=== PATIENT | female | born 1945 | race Caucasian/White ===

== ENCOUNTER 2016-05-24 16:01 | Inpatient (IN) | payer OTHER ==
[~2016-05-24] VITALS: Ht 160 cm; Wt 80.7 kg
[~2016-05-24 16:01] MED LIST: ALPHAGANP LEFTEYE; ALPR0.2583 PO; ASPI-1063 PO; CEL20 PO; DORZ10DR8 LEFTEYE; SIMV20TA2 PO; TEMA15CA51 PO; TOPI25TA8 PO
--- NOTE | 2016-05-24 16:10 | NUR ---
Dr Favian SOUZA at triage room performing MSE.
[2016-05-24 16:17] VITALS: BP 146/82; PULSE 93; RESP 18; TEMP 98.3; O2SAT 95
[2016-05-24 17:14] LABS: BASOPHILS # (AUTO) 0.2 K/uL (0.0-0.2); BASOPHILS % (AUTO) 2.1 % (0.0-2.0); EOSINOPHILS % (AUTO) 0.2 % (0.0-4.0); HEMATOCRIT 38.3 % (36-48); HEMOGLOBIN 13.1 g/dL (12.0-16.0); LYMPHOCYTES % (AUTO) 17.4 % (20.5-51.5); MEAN CORPUSCULAR HEMOGLOBIN 31 pg (27-31); MEAN CORPUSCULAR HGB CONC 34 % (32-36); MEAN CORPUSCULAR VOLUME 90 fL (79.0-98.0); MONOCYTES # (AUTO) 0.4 K/uL (0.0-1.0); MONOCYTES % (AUTO) 3.1 % (1.7-9.3); NEUTROPHILS # (AUTO) 9.1 K/uL (1.8-7.7); NEUTROPHILS % (AUTO) 77.2 % (40.0-70.0); PLATELET COUNT (AUTO) 196 K/uL (130-430); RED BLOOD CELL COUNT(AUTO) 4.25 MIL/uL (4.2-6.2); RED CELL DISTRIBUTION WIDTH 13.8 % (9.0-15.0); WHITE BLOOD COUNT (AUTO) 11.7 K/uL (4.8-10.8)
[2016-05-24 17:17] LABS: CALCIUM 9.1 mg/dL (8.4-11.0); CREATININE 1.24 mg/dL (0.55-1.30); POTASSIUM 4.4 mmol/L (3.5-5.1)
[2016-05-24 17:22] LABS: TOTAL BILIRUBIN 0.4 mg/dL (0.0-1.0); TOTAL PROTEIN, SERUM 7.7 g/dL (6.4-8.3)
[2016-05-24] MEDS ORDERED: cefTRIAXone 1 GM IVPB PREMIX 50 ML IV ONE (18:15)
[2016-05-24] MEDS ORDERED: NACL 0.9% 1,000 ML IV ONE (18:15)
--- NOTE | 2016-05-24 18:15 | NUR ---
Patient to ER bed 03 to gown for evaluation. Side rails up.
--- NOTE | 2016-05-24 18:22 | NUR ---
Patient to ER C/O generalized weakness for the past couple months. Patient states that she has been falling alot, has a hard time walking and that she is seeing a pain management doctor but the reason for the falls has not been found. AAOx4, unlabored rbeathing, no signs of acute distress.
--- NOTE | 2016-05-24 18:45 | NUR ---
# 22 gauge angiocath placed to right forearm. Use of asceptic technique. Opsite placed over site. Blood return noted. Flushed with 10 cc of normal saline. No evidence of infiltration noted. Patient tolerated well.
[2016-05-24 18:50] LABS: BILIRUBIN,URINE NEGATIVE (NEGATIVE); CLARITY/URINE CLEAR (CLEAR); COLOR,URINE YELLOW (YELLOW); GLUCOSE,URINE NEGATIVE (NEGATIVE); KETONES,URINE NEGATIVE (NEGATIVE); LEUKOCYTE ESTERASE ,URINE NEGATIVE (NEGATIVE); NITRITE, URINE NEGATIVE (NEGATIVE); PROTEIN URINE NEGATIVE (NEGATIVE); UROBILINOGEN,URINE 0.2 (0.2-1.0)
[2016-05-24 19:09] LABS: BLOOD, URINE TRACE (NEGATIVE)
[2016-05-24 19:19] LABS: BACTERIA,URINE FEW /HPF (None Seen); MUCUS,URINE None Seen /LPF (None Seen); RBC,URINE 0-3 /HPF (0-3)
[2016-05-24] MEDS ORDERED: TRAM50TA92 PO (20:10)
[2016-05-24] MEDS ORDERED: VENL37.510 PO (20:10)
--- NOTE | 2016-05-24 20:10 | NUR ---
Patient will be admitted to care of DR BUCHANAN. Admitted to TELE unit. Will go to room 135. Belongings list completed. Summary report printed. Report given to DAVID.
[2016-05-24] MEDS ORDERED: MORPHINE 4 MG/ML INJ. SYRINGE IVP PRN (20:15)
--- NOTE | 2016-05-24 20:25 | NUR ---
ADMISSION NOTE Received patient from ER via gurney. Patient admitted with diagnosis of UTI AND FALL. Patient is awake, alert, oriented. Patient oriented to hospital room, call light, toileting, pain management and safety-teach back done. Patient informed that AUBREE will be the nurse and that their room number is 112A. Personal belongings checked and Belongings List documented. Call light within reach. Safety measures in place. Bed alarm on. Sister at bedside. Will continue to monitor.
[2016-05-24 20:42] VITALS: BP 171/86; PULSE 67; RESP 18; TEMP 97.2; O2SAT 94
[2016-05-24] MEDS ORDERED: ACETAMINOPHEN 325 MG TABLET PO PRN (21:00)
--- NOTE | 2016-05-24 21:00 | NUR ---
FALL RISK AND ALLERGY BANDS Late entry due to pt. care. Fall risk and allergy bands applied and reviewed with pt.
--- NOTE | 2016-05-24 21:02 | NUR ---
DR. CHOU HERE MAKING ROUNDS Dr. Chou is here, examined patient. New orders received. Will carry out.
[2016-05-24] MEDS: ONDANSETRON HCL 4 MG/2 ML VIAL IVP PRN (21:14)
[2016-05-24] MEDS: NACL 0.9% 1,000 ML IV SCH (21:14)
[2016-05-24] MEDS: HYDROmorphone 1 MG INJ. 1 MG/ML AMPUL IVP PRN (21:40)
--- NOTE | 2016-05-24 21:43 | NUR ---
PAIN AND NAUSEA Late entry due to pt. care. Pt. c/o nausea and pain "10/10" to lower back. Pt. was given Zofran IVP and Dilaudid IVP as ordered PRN. See EMAR. Educated pt. regarding medication and s/e. Pt. verbalized understanding. Safety measures in place. Bed alarm on. Encouraged pt. to use call light for needs and is educated regarding fall risk. Room near nurses station. Denies any other needs at this time. Will continue to monitor.
--- NOTE | 2016-05-24 22:09 | NUR ---
Consult Called Reason for consultation: Unsteadiness Was consult called: Yes Person who was notified: Supriya Consulting Physician: Socrates Goldsmith MD Stock Handler Floorperson Specialty: Neuro Stock Handler Floorperson Order by Dr Loredo Addendum: 05/24/16 at 2213 by Julia Rand CO/ Order by Dr. Chou
--- NOTE | 2016-05-24 22:41 | NUR ---
REQUESTED SNACK Pt. requested turkey sandwich and apple juice. Pt. denies any other needs at this time. Encouraged pt. to use call light for any needs. Pt. verbalized understanding. Call light to right hand. Bed alarm on. Will continue to monitor.
[2016-05-24 23:41] VITALS: BP 126/73; PULSE 61; RESP 18; TEMP 97.8; O2SAT 91
--- NOTE | 2016-05-24 23:55 | NUR ---
PATIENT RESTING: Patient resting quietly. No acute distress noted. Safety measures in place. Bed alarm on. Room near nurses station. Call light placed to right hand. Will continue to monitor.
--- NOTE | 2016-05-25 00:18 | NUR ---
LAB RE: URINE CX Irma, battery recharger nurse spoke to Katie from lab in regards to UA results. Katie from lab stated pt. did not meet criteria for urine culture.
--- NOTE | 2016-05-25 00:55 | NUR ---
PATIENT RESTING: Patient resting quietly. No acute distress noted. Safety precautions in place. Bed alarm on. Call light placed to right hand. Room near nurses station. Will continue to monitor.
[2016-05-25] MEDS: HYDROmorphone 1 MG INJ. 1 MG/ML AMPUL IVP PRN ×4 (01:27→18:40)
--- NOTE | 2016-05-25 02:08 | NUR ---
ROUNDS Pt. is awake, resting quietly in bed with no s/s of acute distress. Pt. denies any needs at this time. Safety measures in place. Bed alarm on. Room near nurses station. Encouraged pt. to use call light for any assistance. Pt. verbalized understanding. Will continue to monitor.
[2016-05-25 04:06] VITALS: BP 110/68; PULSE 95; RESP 18; TEMP 96.2; O2SAT 100
--- NOTE | 2016-05-25 04:21 | NUR ---
ROUNDS Pt. is awake, resting quietly in bed. Denies any pain, discomfort or any needs at this time. Encouraged pt. to use call light for needs. Pt. verbalized understanding. Safety precautions in place. Call light to right hand. Bed alarm on. Will continue to monitor.
[2016-05-25] MEDS: NACL 0.9% 1,000 ML IV SCH ×2 (05:40→18:30)
--- NOTE | 2016-05-25 05:53 | NUR ---
URINE Pt. denies any need to void at this time; she stated she "peed alot" when she was in the ER yesterday. Bladder does not appear to be distended at this time. Will continue to monitor.
--- NOTE | 2016-05-25 06:06 | NUR ---
CLOSING NOTE All needs met throughout shift. Pt. is awake, resting quietly in bed with no s/s of acute distress. Safety precautions in place. Bed alarm on. Call light to right hand. Encouraged pt. to use call light for needs. Will endorse care to oncoming day shift nurse.
--- NOTE | 2016-05-25 06:19 | NUR ---
BEDSIDE COMMODE Bedside commode given; assisted pt. to BSC to void. Pt. tolerated well. Denies any other needs at this time. Encouraged pt. to use call light for any assistance. Safety precautions in place. Will continue to monitor.
--- NOTE | 2016-05-25 06:44 | NUR ---
SKIN/ORAL CARE Skin and oral care provided as requested by pt. Pt. tolerated well. Encouraged pt. to use call light for needs. Pt. denies any pain or discomfort at this time. Denies any nausea. Safety precautions in place. Call light to right hand. Will endorse care to oncoming day shift nurse.
--- NOTE | 2016-05-25 08:00 | NUR ---
initial notes rec patient awake alert with hob elevated. ivf infusing well on the r foream. no infiltration noted.c.o pain on her back and will medicate patient. no acute distress noted. bed in low position and side rails up and locked.call light within reached and knows when to call for assists.will continue to monitor patient.
[2016-05-25] MEDS: Effexor 37.5 MG TAB PO SCH ×2 (08:03→10:33)
[2016-05-25 08:31] VITALS: BP 130/75; PULSE 65; RESP 18; TEMP 97.6; O2SAT 92
--- NOTE | 2016-05-25 09:32 | NUR ---
Nutrition Update Bryan Scale 18 noted. Pt admitted for UTI, falls. Diet: regular BMI: 31.5 kg/m2 RD to follow per nutrition care standards.
--- NOTE | 2016-05-25 09:57 | NUR ---
MRI CANCELED: DR. VAUGHN MAKES ROUND AND HAS ORDERED TO CANCEL MRI, AND MRI DEPARTMENT IS INFORMED.
--- NOTE | 2016-05-25 10:00 | NUR ---
rounds seen by dr luther at bedside. no acute distress noted.
[2016-05-25] MEDS: ALPRAZolam 0.25 MG TABLET PO PRN ×2 (10:34→21:55)
--- NOTE | 2016-05-25 12:00 | NUR ---
rounds refused t o eat at this time. made patient comfortable. no sob noted.
[2016-05-25 12:30] VITALS: BP 108/66; PULSE 64; RESP 20; TEMP 97.8; O2SAT 92
[2016-05-25] MEDS: ONDANSETRON HCL 4 MG/2 ML VIAL IVP PRN (12:48)
--- NOTE | 2016-05-25 14:00 | NUR ---
rounds resting quietly at this time. no acute distress noted.
--- NOTE | 2016-05-25 16:00 | NUR ---
rounds resting quietly. no sob noted. call light within reached.
[2016-05-25 16:48] VITALS: BP_SYST 112; BP_SYST 122; BP_DIAS 64; BP_DIAS 71; PULSE 66; RESP 18; TEMP 98.2; O2SAT 93
[2016-05-25] MEDS: cefTRIAXone 1 GM IVPB PREMIX 50 ML IV SCH (18:29)
--- NOTE | 2016-05-25 18:30 | NUR ---
closing notes medicated as requested for pain. no sob noted. call light within reached. requested to use the commode to urinate and was assisted. no acute distress noted. call light within reached.
[2016-05-25 20:00] VITALS: BP 110/65; PULSE 68; RESP 18; TEMP 96.8
--- NOTE | 2016-05-25 20:00 | NUR ---
Opening Note Report received from Milagro HERNANDEZ. Patient is in stable condition. Currently resting in bed. IV is on the RFA 22g running NS@100ml/hr. She get out of bed to commode with assistance. Call light is within reach. Instructed to use it whenever in need of assistance. Bed is in low position. Bed alarm is on. Bed is visible from the nurses station.
--- NOTE | 2016-05-25 20:46 | NUR ---
PAGED: I PAGED ANA. @ 2010 #[phone] I SPOKE WITH RADHA VAUGHN HOUSE RN HE CALLED BACK AT 2010
[2016-05-25] MEDS: VANCOMYCIN HCL 1 GM/NS PREMIX 250 ML IV SCH (21:00)
[2016-05-25] MEDS ORDERED: VANCOMYCIN HCL 1000 MG/VIAL IV ONE (21:27)
--- NOTE | 2016-05-25 22:00 | NUR ---
Rounds Patient is currently resting in bed. Call light is within reach. Bed alarm is on.
[2016-05-26] VITALS: BP 121/76; PULSE 70; RESP 16; TEMP 99.1; O2SAT 91
--- NOTE | 2016-05-26 | NUR ---
Pain med. Medicated the patient with Dilaudid 1mg for 9/10 back pain. Will reassess. Assisted the patient to the commode and back into bed. Call light is within reach.
[2016-05-26] MEDS: HYDROmorphone 1 MG INJ. 1 MG/ML AMPUL IVP PRN ×6 (01:43→23:37)
--- NOTE | 2016-05-26 02:03 | NUR ---
Rounds Patient is currently resting in bed. Call light is within reach. Bed alarm is on.
[2016-05-26 04:00] VITALS: BP 120/47; PULSE 69; RESP 17; TEMP 99.6; O2SAT 90
--- NOTE | 2016-05-26 04:03 | NUR ---
Rounds Patient is currently sleeping in bed. Call light is within reach.
[2016-05-26] MEDS: NACL 0.9% 1,000 ML IV SCH ×2 (06:00→15:38)
--- NOTE | 2016-05-26 06:46 | NUR ---
Rounds Patient is resting in bed. IV is on the RFA 22g running NS@100ml/hr. Call light is within reach. Instructed to use it whenever in need of assistance. No signs of distress noted. Will give report to the oncoming nurse.
[2016-05-26 08:00] VITALS: BP 116/62; PULSE 72; RESP 18; TEMP 97.2; O2SAT 98
--- NOTE | 2016-05-26 08:00 | NUR ---
initial notes rec patient awake alert and eating breakfast with hob elevated. ivf infusing well on the r forearm. no infiltration noted. resp easy and unlabored. fall/safety measures reminded to the patient. bed alarm is on . bed in low position and side rails up and locked. call light within reached. and knows when to call for help. will continue to monitor patient.
[2016-05-26] MEDS: VANCOMYCIN HCL 1 GM/NS PREMIX 250 ML IV SCH (08:25)
[2016-05-26] MEDS: Effexor 37.5 MG TAB PO SCH (08:26)
[2016-05-26] MEDS: ALPRAZolam 0.25 MG TABLET PO PRN ×2 (08:37→21:08)
--- NOTE | 2016-05-26 10:00 | NUR ---
rounds assisted patient with bed side commode and ebony well. ambulated with pt on the hallway and ebony well.
--- NOTE | 2016-05-26 12:00 | NUR ---
reason for consult: sepsis was consult called: verbally spoke with dr in person person who was called: verbally spoke with dr in person consulting doctor: Dr. Stringer
--- NOTE | 2016-05-26 12:00 | NUR ---
rounds eating lunch at this time. no sob noted. friend at bedside and visited patient.no acute distress.
[2016-05-26 12:22] VITALS: BP 126/72; PULSE 53; RESP 18; TEMP 96.7; O2SAT 94
--- NOTE | 2016-05-26 14:00 | NUR ---
rounds asleep at this time. no sob noted.
--- NOTE | 2016-05-26 14:45 | NUR ---
PHYSICAL THERAPY CO-SIGN The Physical Therapy Progress Notes documented by Secretary Bookkeeper have been reviewed. Pt IS SHOWING PROGRESS WITH POC; CONT PER TX PLAN Reviewed/Co-Signed by: Zohra Fisher PT Documentation Done by: ENA GRECO ADULT DAYCARE COORDINATOR Addendum: 05/26/16 at 1445 by Zohra Fisher PT Amended: Links added.
--- NOTE | 2016-05-26 16:00 | NUR ---
rounds assisted to the commode at bedside and voided large amount of abbe output. no c/o pain at this time. no sob noted.
[2016-05-26 16:49] VITALS: BP 118/60; PULSE 61; RESP 20; TEMP 97.9; O2SAT 94
--- NOTE | 2016-05-26 18:40 | NUR ---
closing notes pt resting quietly in bed. no sob noted. stable and needs attended. bed alarm was turn on and knows when to call for assistance at bedside. bed in low position and call light within reached.
[2016-05-26] MEDS: cefTRIAXone 1 GM IVPB PREMIX 50 ML IV SCH (19:04)
[2016-05-26 20:00] VITALS: BP 135/78; PULSE 66; RESP 18; TEMP 98; O2SAT 94
--- NOTE | 2016-05-26 20:00 | NUR ---
Initial Notes Received patient resting in bed, awake, alert, oriented. Patient denies any acute distress at this time. Vital signs stable. Breathing even and unlabored on room air. IV site swollen, discontinued, new IV site start right forearm #22, good blood return noted. Patient reported pain to lower back, medicated patient per MD order. Educated patient on use of call light for assistance and fall precautions, patient verbalized understanding. Call light in hand, will continue to monitor.
--- NOTE | 2016-05-26 22:00 | NUR ---
Rounds Patient resting in bed, awake. Denies any acute distress or pain at this time. Breathing even and unlabored. Needs addressed, call light in hand. Will continue to monitor.
[2016-05-27] VITALS (7 sets, daily range): BP systolic 124–177; BP diastolic 68–98; PULSE 62–95; RESP 18–20; TEMP 97.5–98.7; O2SAT 91–95
--- NOTE | 2016-05-27 | NUR ---
Rounds Patient resting in bed, awake. Patient denies any acute distress or pain at this time. Recently medicated patient for pain, patient states relief. Breathing even and unlabored. IV site patent/clean/dry. Needs address. Call light in hand, fall precautions in place. Will continue to monitor.
--- NOTE | 2016-05-27 02:00 | NUR ---
Rounds Patient resting in bed with eyes closed. No acute distress noted, breathing even and unlabored. IV site patent/clean/dry. Will continue to monitor.
[2016-05-27] MEDS: HYDROmorphone 1 MG INJ. 1 MG/ML AMPUL IVP PRN ×5 (03:38→21:56)
[2016-05-27] MEDS: ONDANSETRON HCL 4 MG/2 ML VIAL IVP PRN ×5 (03:39→21:55)
[2016-05-27] MEDS: NACL 0.9% 1,000 ML IV SCH ×3 (03:40→16:58)
--- NOTE | 2016-05-27 04:19 | NUR ---
Rounds Patient resting in bed with eyes closed. No acute distress noted, breathing even and unlabored. IV site patent/clean/dry. Call light in hand, fall precautions in place. Will continue to monitor.
--- NOTE | 2016-05-27 06:37 | NUR ---
Closing Notes Patient resting in bed with eyes closed, easily aroused. Patient denies any acute distress or pain at this time. Breathing even and unlabored. IV site patent/clean/dry, no S/S infection/infiltration noted. Needs addressed throughout shift. Call light in hand, fall precautions in place. Will continue to monitor for changes and safety, and endorse all patient care/needs to oncoming nurse.
--- NOTE | 2016-05-27 08:00 | NUR ---
OPENING NOTES, PT IN BED, C/O OF PAIN 05/01, TOLD HER, PAIN MEDICATION WILL BE PROVIDED WHEN DUE. NO SOB, NO DISTRESS. CALL LIGHT IN REACH, BED IN LOW POSTION. INSTRUCTED TO CALL FOR ASSIST TO BS COMMODE.
[2016-05-27] MEDS: VANCOMYCIN HCL 1,000 MG in NS 250 ML IV SCH (08:19)
[2016-05-27] MEDS: Effexor 37.5 MG TAB PO SCH (08:19)
--- NOTE | 2016-05-27 10:00 | NUR ---
NOTES, PT IN BED, NO SOB, NO DISTRESS. CALL LIGHT IN REACH, BED IN LOW POSTION. INSTRUCTED TO CALL FOR ASSIST TO BS COMMODE.
[2016-05-27] MEDS: ALPRAZolam 0.25 MG TABLET PO PRN ×2 (12:16→22:55)
--- NOTE | 2016-05-27 13:20 | NUR ---
PT NOTES MULTIPLE ATTEMPTS TO PERFORM THERAPY WITH PATIENT IN MORNING AND AFTER LUNCH WITH PT REFUSING THERAPY TODAY. PT STATES, "I CAN'T NOT GET OUT OF BED TODAY, AND WANT TO BE LEFT ALONE. I WILL TRY TOMORROW." EDUCATED PT THE BENEFITS OF OOB ACTITIVITES AND TO PERFORM BEDSIDE THER EX. PT ALSO REFUSED BEDSIDE THERAPY. DISCUSSED WITH NURSING. PVE(2) Addendum: 05/27/16 at 1506 by Temitope Gregory PT PHYSICAL THERAPY CO-SIGN The Physical Therapy Progress Notes documented by Pulverizer Operator have been reviewed. Reviewed/Co-Signed by: Temitope Gregory PT Documentation Done by: Edd Beyer, SENIOR PROJECT ENGINEER
[2016-05-27] MEDS: cefTRIAXone 1 GM IVPB PREMIX 50 ML IV SCH (17:01)
--- NOTE | 2016-05-27 18:00 | NUR ---
CLOSING NOTES PT REMAINS ALERT AND ORIENTED, GIVEN ANXIETY MED AND PAIN MEDS REQUESTED, MRI RESULT REQUESTED BUT UNABLE TO GET. WILL ENDORSE TO NIGHT RN.
--- NOTE | 2016-05-27 19:45 | NUR ---
opening note received patient resting in bed. appears to be sleeping. respirations even and unlabored. no s/s distress. comm board updated. safety precautions in place.
--- NOTE | 2016-05-27 22:57 | NUR ---
bed bath bed bath given by library aide. pt comfortable. pain medication effective and no nausea present
[2016-05-28] VITALS (7 sets, daily range): BP systolic 123–158; BP diastolic 71–94; PULSE 77–87; RESP 16–18; TEMP 97.8–98.4; O2SAT 91–98
[2016-05-28] MEDS: HYDROmorphone 1 MG INJ. 1 MG/ML AMPUL IVP PRN ×4 (01:45→17:26)
[2016-05-28] MEDS: ONDANSETRON HCL 4 MG/2 ML VIAL IVP PRN ×4 (01:45→17:18)
--- NOTE | 2016-05-28 01:54 | NUR ---
BSC ASSISTED PATIENT TO BSC. BACK IN BED. NAUSEA AND PAIN MEDICATION GIVEN. PAIN 7/10 TO LOWER BACK. SAFETY PRECAUTIONS IN PLACE. IV FLUID CONTINUES TO INFUSE NS AT 100ML/H. CALL LIGHT AT SIDE.
[2016-05-28] MEDS: NACL 0.9% 1,000 ML IV SCH (03:48)
--- NOTE | 2016-05-28 03:56 | NUR ---
rounds new iv fluid bag hung. pt comfortable. iv patent and intact.
[2016-05-28] MEDS: ALPRAZolam 0.25 MG TABLET PO PRN ×2 (05:23→17:18)
--- NOTE | 2016-05-28 06:45 | NUR ---
closing note pt resting. no s/s distress. no c/o pain. pain medication effective. iv to right forearm patent and intact. pt calls for assist for bsc. safety precautions in place. all needs met at this time.
[2016-05-28] MEDS: Effexor 37.5 MG TAB PO SCH (09:07)
[2016-05-28] MEDS: VANCOMYCIN HCL 1,000 MG in NS 250 ML IV SCH (09:07)
[2016-05-28] MEDS ORDERED: LEVO500T20 PO (11:38)
--- NOTE | 2016-05-28 12:56 | NUR ---
DISCHARGE PLANNING DC order to SNF. Faxed SNF referral per patient request to [phone]. will follow up on bed availability. [facility] will notify insurance for auth. Addendum: 05/28/16 at 1400 by Jennifer AKHTAR Received call from Andreea at [facility] unable to accept patient facility full has no beds available. CM met with patient and provided contracted SNF list. Faxed SNF referral to [phone] [phone]. Will follow up. Addendum: 05/28/16 at 1506 by Jennifer Alonzo DP spoke with Kelly in admitting at [facility] SN[facility] patient accepted assigned to room 18A RN to report [phone] bed available anytime. CM will update patient. Placed transportation packet in nurses station. Called contracted ambulance [facility] [phone] spoke with Jackie arranged S transport sweet pickled fruit maker 6pm. Placed transportation packet in nurses station.
--- NOTE | 2016-05-28 17:11 | NUR ---
REPORT TO [facility] REPORT GIVEN TO NURSE MICHELINE OF [facility].
--- NOTE | 2016-05-28 19:10 | NUR ---
D/C Patient Patient given medication reconciliation form and D/C instructions. Exit Care provided. Patient verbalized understanding. MD discussed with patient the results and treatment provided. Ambulatory with steady gait for discharge to home. Patient in stable condition, ID band removed. IV catheter removed, intact and dressing applied, no active bleeding. Rx of given. Patient educated on pain management. All belongings sent with patient.
== END 2016-05-28 19:10 | disposition home or self-care (01) | DRG 690 ==
LOC: SED 16:01 → STU 20:10 → SMU 05-25 19:20
PROVIDERS: ATTEND Internal Medicine Hospice and Palliative Medicine
DX: N39.0 Urinary tract infection, site not specified (principal); G89.29 Other chronic pain; H54.42 Blindness, left eye, normal vision right eye; K21.9 Gastro-esophageal reflux disease without esophagitis; F32.9 Major depressive disorder, single episode, unspecified; M54.9 Dorsalgia, unspecified; F41.9 Anxiety disorder, unspecified; B95.8 Unspecified staphylococcus as the cause of diseases classified elsewhere; M54.5 Low back pain; Z91.81 History of falling; Z88.5 Allergy status to narcotic agent; Z88.6 Allergy status to analgesic agent; Z88.8 Allergy status to other drugs, medicaments and biological substances; Z86.73 Personal history of transient ischemic attack (TIA), and cerebral infarction without residual deficits
CPT/HCPCS: 36415; 80053; 81000-TC; 83605; 84484; 85025; 87040-TC; 87081; 93005; 96365; 97110-GP; 97116-GP; 97530-GP; 99285; J0696; J1170; J2405; J3370; J7030; J7050

== ENCOUNTER 2016-06-15 10:29 | Inpatient (IN) | payer OTHER ==
[~2016-06-15] VITALS: Ht 160 cm; Wt 88.9 kg
[2016-06-15 10:29] VITALS: BP 163/87; PULSE 69; RESP 17; TEMP 97.6; O2SAT 97
[~2016-06-15 10:29] MED LIST changes: +LEVO500T20 PO; +TRAM50TA92 PO; +VENL37.510 PO
--- NOTE | 2016-06-15 10:29 | NUR ---
BROUGHT IN BY S AMBULANCE AND PLACED IN BED #2, REPORT GIVEN TO NEL
--- NOTE | 2016-06-15 10:30 | NUR ---
Pt report received from DAVID Lynne. Pt s/p fall today onto carpet injuring her Right back and hip. Pt states that she has been experiencing multiple falls since r/t her "leg giving out." No trauma or deformities noted.
[2016-06-15] MEDS ORDERED: ONDANSETRON HCL 4 MG/2 ML VIAL IVP ONE (10:45)
[2016-06-15] MEDS ORDERED: HYDROmorphone 2 MG/ML VIAL IVP ONE (10:45)
[2016-06-15 11:24] LABS: BASOPHILS # (AUTO) 0.1 K/uL (0.0-0.2); BASOPHILS % (AUTO) 0.9 % (0.0-2.0); EOSINOPHILS # (AUTO) 0.2 K/uL (0.0-0.4); EOSINOPHILS % (AUTO) 2.7 % (0.0-4.0); HEMATOCRIT 35.5 % (36-48); HEMOGLOBIN 11.5 g/dL (12.0-16.0); LYMPHOCYTES # (AUTO) 1.9 K/uL (1.0-5.5); LYMPHOCYTES % (AUTO) 29.9 % (20.5-51.5); MEAN CORPUSCULAR HEMOGLOBIN 29 pg (27-31); MEAN CORPUSCULAR HGB CONC 32 % (32-36); MEAN CORPUSCULAR VOLUME 90 fL (79.0-98.0); MONOCYTES # (AUTO) 0.4 K/uL (0.0-1.0); MONOCYTES % (AUTO) 5.7 % (1.7-9.3); NEUTROPHILS # (AUTO) 3.8 K/uL (1.8-7.7); NEUTROPHILS % (AUTO) 60.8 % (40.0-70.0); PLATELET COUNT (AUTO) 255 K/uL (130-430); RED BLOOD CELL COUNT(AUTO) 3.97 MIL/uL (4.2-6.2); WHITE BLOOD COUNT (AUTO) 6.4 K/uL (4.8-10.8)
[2016-06-15 11:36] LABS: CREATININE 0.98 mg/dL (0.55-1.30); POTASSIUM 4.3 mmol/L (3.5-5.1)
[2016-06-15 11:41] LABS: ALBUMIN 3.4 g/dL (3.4-4.8); INR 0.9 (0.8-1.2); PROTHROMBIN TIME 10.2 SECS (9.5-12.5); TOTAL BILIRUBIN 0.4 mg/dL (0.0-1.0); TOTAL PROTEIN, SERUM 6.8 g/dL (6.4-8.3)
--- NOTE | 2016-06-15 11:45 | NUR ---
Patient not responsive at this time 02 67 %, skin turning blue, radial pulses equal and strong after Dilaudid administration, Dr Land notified at this time, charge nurse and RT at bedside, verbal order for Narcan 1 mg received and administered. Addendum: 06/15/16 at 1223 by SDEDAFJ Pt oxygenated with Ambubag 100 % at this time.
--- NOTE | 2016-06-15 11:45 | NUR ---
Dr Land at bedside to evaluating patient.
--- NOTE | 2016-06-15 11:50 | NUR ---
Pt O2 increasing to 93 %, pt responsive at this time, eyes open, skin pink and warm, VSS,radial pulses equal and strong.
--- NOTE | 2016-06-15 11:52 | NUR ---
Pt confuse at this time, pt asking repetitive questions, " where am I ?, what room am I? ". aware.
[2016-06-15] MEDS ORDERED: NALOXONE HCL 2 MG/2 ML SYR ONE (11:55)
[2016-06-15] MEDS ORDERED: NALOXONE HCL 2 MG/2 ML SYR (NARCAN) IVP ONE (12:30)
--- NOTE | 2016-06-15 12:34 | NUR ---
Unable to reconcile medications at this time, pt came from home and states she does not remember medications name.
[2016-06-15 12:40] LABS: BILIRUBIN,URINE NEGATIVE (NEGATIVE); BLOOD, URINE NEGATIVE (NEGATIVE); CLARITY/URINE CLEAR (CLEAR); COLOR,URINE YELLOW (YELLOW); GLUCOSE,URINE NEGATIVE (NEGATIVE); KETONES,URINE NEGATIVE (NEGATIVE); LEUKOCYTE ESTERASE ,URINE NEGATIVE (NEGATIVE); NITRITE, URINE NEGATIVE (NEGATIVE); PH,URINE 7.5 (5.0-8.0); PROTEIN URINE TRACE (NEGATIVE); UROBILINOGEN,URINE 0.2 (0.2-1.0)
--- NOTE | 2016-06-15 12:47 | NUR ---
Pt on stable condition at this time, Alert to name and place, VS WNL.
--- NOTE | 2016-06-15 12:50 | NUR ---
Dr Biswas at bedside examining patient.
[2016-06-15] MEDS ORDERED: IPRATROPIUM BROM 0.5 MG/2.5 ML VIAL.NEB (ATROVENT) INH PRN (13:00)
[2016-06-15] MEDS ORDERED: ALBUTEROL SULFATE 0.083% 2.5 MG/3 ML VIAL.NEB INH PRN (13:00)
[2016-06-15] MEDS ORDERED: ACETAMINOPHEN 325 MG TABLET PO PRN (13:00)
[2016-06-15] MEDS ORDERED: ONDANSETRON HCL 4 MG/2 ML VIAL IVP PRN (13:00)
[2016-06-15 13:07] LABS: BACTERIA,URINE RARE /HPF (None Seen); RBC,URINE NONE SEEN /HPF (0-3); WBC,URINE 0-3 /HPF (0-3)
--- NOTE | 2016-06-15 13:11 | NUR ---
ADMIT NOTE Received pt from ER to the floor with a diagnosis of respiratory distress and back pain. Admission process initiated. patient oriented to pain management, safety and call light-teach back done.
[2016-06-15 13:15] LABS: MUCUS,URINE None Seen /LPF (None Seen)
[2016-06-15 13:16] VITALS: BP 98/60; PULSE 75; RESP 18; TEMP 98.6; O2SAT 98
[2016-06-15 13:16] LABS: BACTERIA,URINE RARE /HPF (None Seen); MUCUS,URINE None Seen /LPF (None Seen); RBC,URINE NONE SEEN /HPF (0-3); WBC,URINE 0-3 /HPF (0-3)
--- NOTE | 2016-06-15 13:20 | NUR ---
Patient will be admitted to care of Dr Biswas. Admitted to Tele unit. Will go to room 135B. Belongings list completed. Summary report printed. Report will be given at bedside.
--- NOTE | 2016-06-15 14:56 | NUR ---
RN ROUNDS PATIENT RESTING IN BED, EYES CLOSED, BREATHING IS EVEN AND UNLABORED, NO SIGNS OF DISTRESS, BED IN LOWEST POSITION, THREE SIDE RAILS UP, BED ALARM ON, BED CLOSE TO NURSE'S STATION, FALL AND ASPIRATION PRECAUTIONS IN PLACE, CALL LIGHT IN THE PATIENT'S HAND, WILL CONTINUE TO MONITOR.
--- NOTE | 2016-06-15 15:46 | NUR ---
RN ROUNDS PATIENT RESTING IN BED, EYES CLOSED, BREATHING IS EVEN AND UNLABORED, NO SIGNS OF DISTRESS, BED IN LOWEST POSITION, THREE SIDE RAILS UP, BED ALARM ON, BED CLOSE TO NURSE'S STATION, FALL AND ASPIRATION PRECAUTIONS IN PLACE, CALL LIGHT NEXT TO THE PATIENT'S HAND.
--- NOTE | 2016-06-15 16:45 | NUR ---
CONSULT REASON FOR CONSULT: PAIN WAS CONSULT CALLED : DR. JAMILA OFFICE WAS CALLED SEVERAL TIMES NOBODY PICKED UP CONSULTING PHONE NUMBER: [phone]
--- NOTE | 2016-06-15 17:06 | NUR ---
CONSULT REASON FOR CONSULT: SOB PERSON WHO WAS NOTIFIED : DR. URBINA OIL CHANGER WAS NOTIFIED
--- NOTE | 2016-06-15 17:24 | NUR ---
CONSULT REASON FOR CONSULT : PAIN CONSULTING PHYSICIAN: DR. STEINER PERSON WHO WAS NOTIFIED: MICHELLE
--- NOTE | 2016-06-15 18:30 | NUR ---
DR JATIN MACHUCA WILL FOLLOW UP WITH ANY NEW ORDERS.
--- NOTE | 2016-06-15 18:51 | NUR ---
CLOSING NOTES PATIENT RESTING IN BED, EYES CLOSED, BREATHING IS EVEN AND UNLABORED, NO SINGS OF DISTRESS, BED IN LOWEST POSITION, THREE SIDE RAILS UP, BED ALARM ON, BED CLOSE TO NURSE'S STATION, FALL AND ASPIRATION PRECAUTIONS IN PLACE, CALL LIGHT NEXT TO THE PATIENT'S HAND, WILL ENDORSE REPORT TO NOC SHIFT NURSE.
--- NOTE | 2016-06-15 19:45 | NUR ---
Initial Notes Patient alert and oriented, able to make needs known. Patient c/o pain, will medicate with pain medicine ordered. No SOB noted, on 2L/NC. Denies nausea/vomiting at this time. IV site patent, flushes well. Patient repositioned in bed. Goal of pain management, ortho stability and safety this shift. Call light within reach. Will continue to monitor.
[2016-06-15] MEDS: traMADol HCL HCL 50 MG TABLET (ULTRAM) PO PRN (19:52)
[2016-06-15 20:01] VITALS: BP 111/59; PULSE 70; RESP 18; TEMP 97; O2SAT 96
[2016-06-15] MEDS: ACETAMINOPHEN/CODEINE 300 MG-30 MG TABLET PO SCH (21:18)
--- NOTE | 2016-06-15 21:49 | NUR ---
MD HUERTA CALLED BÁRBARA NICHOLSON AT [phone] SPOKE WITH DANAE.
--- NOTE | 2016-06-15 22:00 | NUR ---
Notes Patient recently medicated with ordered pain medicine. Patient had requested for staff to call MD, to ask for Dilaudid. Spoke to on the phone and informed MD of pts request. Per MD, he does not want to give the Dilaudid since patient had resp distress the most recent time she had it. Informed MD pt was ok with lower dose of the Dilaudid, but MD stated to continue with current pain regimen, no new orders received. Call light within reach. Will continue to monitor.
--- NOTE | 2016-06-15 22:10 | NUR ---
2ND PAGE OUT TO PAGED DOC NICHOLSON AT [phone] SPOKE WITH SHIVA.
[2016-06-16] VITALS (8 sets, daily range): BP systolic 110–143; BP diastolic 66–81; PULSE 56–102; RESP 16–20; TEMP 97.2–98.7; O2SAT 90–100
--- NOTE | 2016-06-16 00:05 | NUR ---
PAGED: I PAGED ANA. @ [phone] I SPOKE WITH JANIYA ORTIZ
--- NOTE | 2016-06-16 00:16 | NUR ---
Notes Patient requested for her Xanax, med is not ordered for her. Claudine SOUZA, awaiting call back. No SOB noted. IV site patent, flushes well. Call light within reach. Will continue to monitor.
--- NOTE | 2016-06-16 00:33 | NUR ---
PAGED: I PAGED ANA. @ [phone] I SPOKE WITH SNEHA DIANA VAUGHN DYE MACHINE OPERATOR THIS IS THE SECOND CALL FOR HIM 1ST. PAGED WAS @ [phone]
--- NOTE | 2016-06-16 00:49 | NUR ---
PAGED: I PAGED PHY. TABOR PAGED: I PAGED PHY. SALINAS @ [phone] THIS IS THE THIRD CALL I SPOKE WITH MALINDA VAUGHN IS OXYGEN THERAPIST. NO ANSWER UNTIL NOW.
--- NOTE | 2016-06-16 01:15 | NUR ---
PAGED: I PAGED PHY. SALINAS @ 0115 # [phone] DR. VAUGHN JOURNEYMAN GLAZIER THIS IS THE FOURTH CALL I SPOKE WITH DILEEP ORTIZ
[2016-06-16] MEDS: ALPRAZolam 0.25 MG TABLET PO PRN ×2 (01:35→20:06)
[2016-06-16] MEDS: traMADol HCL HCL 50 MG TABLET (ULTRAM) PO PRN (01:38)
--- NOTE | 2016-06-16 02:03 | NUR ---
Notes Patient recently medicated with ordered pain medicine and xanax as requested. No SOB noted. IV site patent, flushes well. Afebrile. Call light within reach. Will continue to monitor.
--- NOTE | 2016-06-16 04:15 | NUR ---
Notes Patient sleeping at this time. No s/s of pain noted. No SOB noted. IV site patent, flushes well. Call light within reach. Will continue to monitor.
--- NOTE | 2016-06-16 06:48 | NUR ---
Closing Notes Patient sleeping at this time. No SOB noted, on 2L/NC. Denies nausea/vomiting at this time. IV site patent, flushes well. Patient repositioned in bed. Goal of pain management, ortho stability and safety met. Call light within reach. Will continue to monitor.
--- NOTE | 2016-06-16 07:30 | NUR ---
AM ROUNDS PATIENT RESTING IN BED, AWAKE, ALERT AND ORIENTED X4, STATES MODERATE PAIN LEVEL AND WOULD LIKE TO WAIT FOR HER SCHEDULED MEDIATION, ASSESSMENT COMPLETE, EDUCATED THE PATIENT STATISTICIAN THEORETICAL LIGHT SYSTEM AND TO CALL FOR ANY ASSISTANCE, PATIENT VERBALIZED UNDERSTANDING, BED IN LOWEST POSITION, THREE SIDE RAILS UP, BED ALARM ON, BED CLOSE TO NURSE'S STATION, FALL AND ASPIRATION PRECAUTIONS IN PLACE, CALL LIGHT IN THE PATIENT'S HAND.
[2016-06-16] MEDS: ACETAMINOPHEN/CODEINE 300 MG-30 MG TABLET PO SCH ×4 (07:57→20:07)
--- NOTE | 2016-06-16 08:30 | NUR ---
DR JOHANA MACHUCA WILL FOLLOW UP WITH ANY NEW ORDERS.
--- NOTE | 2016-06-16 09:40 | NUR ---
Nutrition Update Bryan Scale 16 noted. Pt admitted for respiratory distress, back pain. Diet: NPO BMI: 34.9 kg/m2 RD to follow per nutrition care standards.
--- NOTE | 2016-06-16 10:55 | NUR ---
DR STEINER CALL BACK REGARDING PAIN MEDICATION ORDERS, WILL FOLLOW UP.
--- NOTE | 2016-06-16 10:55 | NUR ---
DR STEINER STATED OK TO GIVE DILAUDID 1MG IVP.
[2016-06-16] MEDS: HYDROmorphone 1 MG INJ. 1 MG/ML AMPUL IVP PRN ×4 (11:36→21:17)
--- NOTE | 2016-06-16 11:36 | NUR ---
RN ROUNDS PATIENT AWAKE NOW, STATING 10/10 PAIN, EDUCATED THE PATIENT ON PAIN MANAGEMENT AND ON MEDICATION AND POTENTIAL SIDE EFFECTS, PATIENT VERBALIZED UNDERSTANDING, IV SITE IS PATENT, FLUSHING WELL, NASAL CANNULA PLACED BACK ON THE PATIENT AT 2L, WILL CONTINUE TO MONITOR, NO OTHER NEEDS AT THIS TIME, BED IN LOWEST POSITION, THREE SIDE RAILS UP, BED ALARM ON, BED CLOSE TO NURSE'S STATION, FALL AND ASPIRATION PRECAUTIONS IN PLACE, CALL LIGHT IN THE PATIENT'S HAND.
--- NOTE | 2016-06-16 12:59 | NUR ---
RN ROUNDS PATIENT RESTING IN BED, AWAKE, STATES NO PAIN AT THIS TIME, PATIENT REFUSED 1300 TYLENOL #3 AT THIS TIME, NO OTHER NEEDS AT THIS TIME, NO DISTRESS, BED IN LOWEST POSITION, THREE SIDE RAILS UP, BED ALARM ON, BED CLOSE TO NURSE'S STATION, FALL AND ASPIRATION PRECAUTIONS IN PLACE, CALL LIGHT NEXT TO THE PATIENT'S HAND, WILL CONTINUE TO MONITOR.
--- NOTE | 2016-06-16 14:35 | NUR ---
Bryan scale evaluation: Patient evaluated for a low Bryan score of 16. Patient was awake, alert, oriented, and received in a Jose Angel bed with an Isoflex LEATHA mattress. Patient needs assist to turn in bed. Recommend encourage and assist patient as needed with repositioning every 2 hours with pillow support, and offload pressure areas with pillows for pressure redistribution. Elevate, offload and float bilateral heels with pillows. Use moisture barrier cream on buttocks and other moisture susceptible areas 4 times a day, and as needed for soiling. Perform skin care and monitor skin integrity every shift.
[2016-06-16] MEDS: GABAPENTIN 400 MG CAPSULE PO SCH ×2 (14:36→20:03)
--- NOTE | 2016-06-16 14:40 | NUR ---
RN ROUNDS PATIENT RESTING IN BED, AWAKE, STATES PAIN IS MILD, EDUCATED ON MEDICATION AND POTENTIAL SIDE EFFECTS, PATIENT VERBALIZED UNDERSTANDING AT THIS TIME AND TOLERATED WELL,NO OTHER NEEDS AT THIS TIME, BED IN LOWEST POSITION, THREE SIDE RAILS UP, BED ALARM ON, FALL AND ASPIRATION PRECAUTIONS IN PLACE, CALL LIGHT IN THE PATIENT'S HAND, BED CLOSE TO NURSE'S STATION.
[2016-06-16 15:07] LABS: BLOOD GAS PH 7.329 (7.350-7.450)
[2016-06-16 15:08] LABS: ABG TOTAL HEMOGLOBIN 12.3 G/dL (12.0-18.0); BLOOD GAS BASE EXCESS 1.7 mmol/L (-3.0-3.0); BLOOD GAS COHb% 0.2 % (0.5-1.5); BLOOD GAS HHB 3.3 % (0.0-6.0); BLOOD O2Hb% 96.1 % (94.0-97.0)
--- NOTE | 2016-06-16 15:34 | NUR ---
RN ROUNDS PATIENT RESTING IN BED, STATING SEVERE PAIN AT THIS TIME, EDUCATED ON MEDICATION AND POTENTIAL SIDE EFFECTS, PATIENT VERBALIZED UNDERSTANDING AND TOLERATED WELL, IV SITE IS PATENT WITH NO SIGNS OF INFILTRATION, BED IN LOWEST POSITION, THREE SIDE RAILS UP, BED ALARM ON, FALL AND ASPIRATION PRECAUTIONS IN PLACE, CALL LIGHT IN THE PATIENT'S HAND, BED CLOSE TO NURSE'S STATION, WILL CONTINUE TO MONITOR.
--- NOTE | 2016-06-16 16:46 | NUR ---
DR VAUGHN PAGED REGARDING DIET ORDERS AND TO NOTIFY THAT MRI NEEDS DOCUMENTATION TO WHETHER THE PATIENT'S IVC FILTER IS METAL/MRI COMPATIBLE, WILL FOLLOW UP.
--- NOTE | 2016-06-16 16:55 | NUR ---
DR VAUGHN CALL BACK STATED OK TO HAVE REGULAR DIET, STATED HE WOULD NOT HAVE THE INFO ABOUT THE IVC FILTER, WILL NOTIFY DR STEINER.
--- NOTE | 2016-06-16 17:06 | NUR ---
RN ROUNDS PATIENT RESTING IN BED, DENIES PAIN, BEING ASSISTED BY SENIOR WEB ENGINEER AT THIS TIME, NO OTHER NEEDS AT THIS TIME, BED IN LOWEST POSITION, THREE SIDE RAILS UP, BED ALARM ON, BED CLOSE TO NURSE'S STATION, FALL AND ASPIRATION PRECAUTIONS IN PLACE, CALL LIGHT IN THE PATIENT'S HAND.
--- NOTE | 2016-06-16 18:30 | NUR ---
CLOSING NOTES PATIENT RESTING IN BED, AWAKE, STATES 7/10 PAIN, EDUCATED ON PAIN MEDICATION AND POTENTIAL SIDE EFFECTS, PATIENT VERBALIZED UNDERSTANDING AND TOLERATED WELL, IV SITE IS PATENT WITH NO SIGNS OF INFILTRATION, ALL NEEDS MET, BED IN LOWEST POSITION, THREE SIDE RAILS UP, BED ALARM ON, FALL AND ASPIRATION PRECAUTIONS IN PLACE, CALL LIGHT IN THE PATIENT'S HAND, WILL ENDORSE REPORT TO NOC SHIFT NURSE.
--- NOTE | 2016-06-16 19:35 | NUR ---
INITIAL ASSESSMENT: RECEIVE PT IN BED, AWAKE, ALERT AND ORIENTED X4,RESTING, DENIES ANY PAIN OR DISCOMFORT, BREATHING EVEN AND NON LABORED WITH 02 2LI/NC, VITAL STABLE. PT STATES MODERATE PAIN LEVEL AND WOULD LIKE TO WAIT FOR HER SCHEDULED MEDIATION, CHEST CLEARM ABDOMEN SOFT AND NON DISTENDED, ACTIVE BOWEL SOUND THROUGHOUT ABDOMEN, PT HAS IV ON LEFT CHEST 24 G, FLUSHED WELL, SALINE LOCK, ASSESSMENT COMPLETE, EDUCATED THE PATIENT MASTER NAVAL PARACHUTIST LIGHT SYSTEM AND TO CALL FOR ANY ASSISTANCE, PATIENT VERBALIZED UNDERSTANDING, BED IN LOWEST POSITION, THREE SIDE RAILS UP, BED ALARM ON, BED CLOSE TO NURSE'S STATION, FALL AND ASPIRATION PRECAUTIONS IN PLACE, CALL LIGHT IN THE PATIENT'S HAND. WILL CONTINUE TO MONITOR.
[2016-06-16] MEDS: ALBUTEROL SULFATE 0.083% 2.5 MG/3 ML VIAL.NEB INH SCH (19:38)
[2016-06-16] MEDS: IPRATROPIUM BROM 0.5 MG/2.5 ML VIAL.NEB (ATROVENT) INH SCH (19:38)
--- NOTE | 2016-06-16 20:30 | NUR ---
ADMINISTERED MEDICATION: PATIENT RESTING IN BED, DENIES PAIN, PT REFUSED TO HAVE TYLENOL #3, ASSISTED PT TO RESTROOM AND BACK TO BED, ADMINISTERED ALL ORDER MEDICATION. NO OTHER NEEDS AT THIS TIME, BED IN LOWEST POSITION, THREE SIDE RAILS UP, BED ALARM ON, BED CLOSE TO NURSE'S STATION, FALL AND ASPIRATION PRECAUTIONS IN PLACE, CALL LIGHT IN THE PATIENT'S HAND. WILL CONTINUE TO MONITOR.
--- NOTE | 2016-06-16 21:17 | NUR ---
PAIN/ADMINISTERED DILAUDID: PATIENT RESTING IN BED, STATING SEVERE PAIN 8/10 AT THIS TIME, ADMINISTERED DILAUDID 1 MG IVP, EDUCATED ON MEDICATION AND POTENTIAL SIDE EFFECTS, PATIENT VERBALIZED UNDERSTANDING AND TOLERATED WELL, IV SITE IS PATENT WITH NO SIGNS OF INFILTRATION, BED IN LOWEST POSITION, THREE SIDE RAILS UP, BED ALARM ON, FALL AND ASPIRATION PRECAUTIONS IN PLACE, CALL LIGHT IN THE PATIENT'S HAND, BED CLOSE TO NURSE'S STATION, WILL CONTINUE TO MONITOR.
--- NOTE | 2016-06-16 23:23 | NUR ---
RN ROUND: PATIENT SLEEPING, NO NOTED DISTRESS, BREATHING EVEN AND NON LABORED WITH O2 2LI/NC, VITAL STABLE, DENIES PAIN, NO OTHER NEEDS AT THIS TIME, BED IN LOWEST POSITION, THREE SIDE RAILS UP, BED ALARM ON, BED CLOSE TO NURSE'S STATION, FALL AND ASPIRATION PRECAUTIONS IN PLACE, CALL LIGHT IN THE PATIENT'S HAND. WILL CONTINUE TO MONITOR.
[2016-06-17] MEDS: IPRATROPIUM BROM 0.5 MG/2.5 ML VIAL.NEB (ATROVENT) INH SCH ×6 (03:00→22:24)
[2016-06-17] MEDS: ALBUTEROL SULFATE 0.083% 2.5 MG/3 ML VIAL.NEB INH SCH ×6 (03:00→22:24)
[2016-06-17] MEDS: HYDROmorphone 1 MG INJ. 1 MG/ML AMPUL IVP PRN ×6 (03:55→21:55)
[2016-06-17 03:56] VITALS: BP 133/80; PULSE 118; RESP 20; TEMP 97.6; O2SAT 90
[2016-06-17] MEDS: traMADol HCL HCL 50 MG TABLET (ULTRAM) PO PRN ×2 (06:03→20:22)
--- NOTE | 2016-06-17 06:03 | NUR ---
PT C/O BACK PAIN 08/01, ADMINISTERED TRAMADOL 50 MG, WILL REASSESS, CALL LIGHT WITH IN REACH, WILL CONTINUE TO MONITOR. IV SITE PATENT.
--- NOTE | 2016-06-17 07:00 | NUR ---
CLOSING NOTE: PT SLEEPING, NO DISTRESS, DENIES ANY PAIN OR DISTRESS, O2 2LI/NC, VITAL STABLE, CALL LIGHT WITH IN REACH, WILL ENDORSE TO AM NURSE.
--- NOTE | 2016-06-17 07:48 | NUR ---
AM ROUNDS PATIENT RESTING IN BED, AWAKE, ALERT AND ORIENTED X4, STATES MODERATE PAIN LEVEL AND WOULD LIKE NURSE TO CHECK WHEN SHE CAN HAVE DILAUDID AGAIN, PATIENT BLOOD PRESSURE ASSESSED TO BE 98/45, WILL REASSESS AND FOLLOW UP WITH PAIN MEDICATION IF BLOOD PRESSURE MORE STABLE, ASSESSMENT COMPLETE, EDUCATED THE PATIENT TISSUE INSERTER LIGHT SYSTEM AND TO CALL FOR ANY ASSISTANCE, PATIENT VERBALIZED UNDERSTANDING, BED IN LOWEST POSITION, THREE SIDE RAILS UP, BED ALARM ON, BED CLOSE TO NURSE'S STATION, FALL AND ASPIRATION PRECAUTIONS IN PLACE, CALL LIGHT IN THE PATIENT'S HAND.
[2016-06-17 08:06] VITALS: BP 111/72; PULSE 90; RESP 16; TEMP 97.5; O2SAT 97
[2016-06-17] MEDS: GABAPENTIN 400 MG CAPSULE PO SCH ×3 (08:30→20:22)
[2016-06-17] MEDS: ACETAMINOPHEN/CODEINE 300 MG-30 MG TABLET PO SCH ×4 (08:31→20:22)
[2016-06-17 09:44] LABS: BLOOD GAS PH 7.279 (7.350-7.450)
[2016-06-17 09:46] LABS: ABG TOTAL HEMOGLOBIN 12.1 G/dL (12.0-18.0); BLOOD GAS BASE EXCESS -1.3 mmol/L (-3.0-3.0); BLOOD GAS HHB 16.9 % (0.0-6.0); BLOOD O2Hb% 81.8 % (94.0-97.0)
--- NOTE | 2016-06-17 10:34 | NUR ---
IV RE-INSERTION: Complaining of pain to IV site. Restarted on LEFT UPPER ARM 24G. Successful after 2 attempts. SALINE LOCK. Will observe for any signs of infiltration.
[2016-06-17 11:24] VITALS: BP 113/69; PULSE 71; RESP 19; TEMP 97; O2SAT 98
[2016-06-17] MEDS: ALPRAZolam 0.25 MG TABLET PO PRN ×2 (12:35→20:23)
--- NOTE | 2016-06-17 12:35 | NUR ---
RN ROUNDS PATIENT CALLING AT THIS TIME, RESTING IN BED, AWAKE, STATES 7/10 PAIN, EDUCATED THE PATIENT ON MEDICATIONS AND POTENTIAL SIDE EFFECTS, PATIENT VERBALIZED UNDERSTANDING AND TOLERATED WELL, NO OTHER NEEDS AT THIS TIME, BED IN LOWEST POSITION, THREE SIDE RAILS UP, BED ALARM ON, BED CLOSE TO NURSE'S STATION, CALL LIGHT IN THE PATIENT'S HAND, FALL AND ASPIRATION PRECAUTIONS IN PLACE.
--- NOTE | 2016-06-17 13:36 | NUR ---
VSS @0730. Patient repositioned and sat up for Breakfast. 0800 scheduled medications given. No S/S of abnormal reaction 0830 bath and linen change. Patient tolerated well. 1145 served patient lunch.
--- NOTE | 2016-06-17 14:45 | NUR ---
RN ROUNDS PATIENT RESTING IN BED, AWAKE, DENIES PAIN, STATES SHE GOT HER PAIN MEDICATION FROM ANOTHER NURSE, NO OTHER NEEDS AT THIS TIME, BED IN LOWEST POSITION, THREE SIDE RAILS UP, BED ALARM ON, BED CLOSE TO NURSE'S STATION, FALL PRECAUTIONS IN PLACE, CALL LIGHT IN THE PATIENT'S HAND.
--- NOTE | 2016-06-17 15:29 | NUR ---
PHYSICAL THERAPY CO-SIGN The Physical Therapy Progress Notes documented by 3D Modeler have been reviewed. Pt IS SHOWING PROGRESS WITH POC; CONT PER TX PLAN Reviewed/Co-Signed by: Zohra Fisher PT Documentation Done by: SCAR KAUFFMAN FARM CREW LEADER Addendum: 06/17/16 at 1530 by Zohra Fisher PT Amended: Links added.
[2016-06-17 15:55] VITALS: BP 120/75; PULSE 80; RESP 19; TEMP 97.2; O2SAT 96
--- NOTE | 2016-06-17 16:12 | NUR ---
RN ROUNDS PATIENT RESTING IN BED, TALKING WITH FAMILY AT THE BEDSIDE AT THIS TIME, BED IN LOWEST POSITION, THREE SIDE RAILS UP, BED ALARM ON, FALL PRECAUTIONS IN PLACE, BED CLOSE TO NURSE'S STATION, CALL LIGHT IN THE PATIENT'S HAND.
--- NOTE | 2016-06-17 16:40 | NUR ---
RN ROUNDS PATIENT RESTING IN BED AWAKE, STATES 5/10 PAIN, EDUCATED ON PAIN MEDICATION AND POTENTIAL SIDE EFFECTS, PATIENT VERBALIZED UNDERSTANDING AND TOLERATED WELL, NO OTHER NEEDS AT THIS TIME, BED IN LOWEST POSITION, THREE SIDE RAILS UP, BED ALARM ON, BED CLOSE TO NURSE'S STATION, CALL LIGHT IN THE PATIENT'S HAND, WILL CONTINUE TO MONITOR.
--- NOTE | 2016-06-17 17:26 | NUR ---
CONSULT ORTHO RIGHT HIP PAIN DR CRUZ [phone] SWEEPER OPERATOR [phone] S/W SHIVA ORTIZ @ 1358
--- NOTE | 2016-06-17 17:46 | NUR ---
SPOKE WITH DR JARAMILLO STATED THAT HE DOES NOT WORK UNDER THE PATIENT'S INSURANCE AND STATED TO NOTIFY DR STEINER.
--- NOTE | 2016-06-17 17:47 | NUR ---
SPOKE WITH DR STEINER REGARDING ORTHO CONSULT BEING UNABLE TO SEE THE PATIENT DUE TO INSURANCE, STATED TO CANCEL ORTHO CONSULT AND MAKE SURE MRI GETS DONE, AND TO PUT A NURSING ORDER THAT STATES DO NOT DISCHARGE PATIENT UNTIL MRI IS DONE, WILL FOLLOW UP. Addendum: 06/17/16 at 1754 by Art Lopez RN PATIENT STATES THE HER IVC FILTER IS PLASTIC AND IN THE RIGHT LUNG AND WAS PLACED AT [facility]. Addendum: 06/17/16 at 1755 by Art Lopez RN DR STEINER STATED ALSO TO NOT DISCHARGE PATIENT WITHOUT MRI.
--- NOTE | 2016-06-17 18:03 | NUR ---
RN ROUNDS PATIENT RESTING IN BED, CALLING AT THIS TIME, STATING SEVERE PAIN IN LOWER BACK, EDUCATED ON PAIN MANAGEMENT AND PAIN MEDICATION AND POTENTIAL SIDE EFFECTS, PATIENT VERBALIZED UNDERSTANDING AND TOLERATED WELL, IV SITE IS PATENT WITH NO SIGNS OF INFILTRATION, BED IN LOWEST POSITION, THREE SIDE RAILS UP, BED ALARM ON, BED CLOSE TO NURSE'S STATION, FALL AND ASPIRATION PRECAUTIONS IN PLACE, WILL CONTINUE TO MONITOR.
--- NOTE | 2016-06-17 18:33 | NUR ---
CLOSING NOTES PATIENT RESTING IN BED, AWAKE, DENIES PAIN, NO OTHER NEEDS AT THIS TIME, BED IN LOWEST POSITION, THREE SIDE RAILS UP, BED ALARM ON, FALL AND ASPIRATION PRECAUTIONS IN PLACE, CALL LIGHT IN THE PATIENT'S HAND, BED CLOSE TO NURSE'S STATION, ALL NEEDS MET, WILL ENDORSE REPORT TO NOC SHIFT NURSE.
--- NOTE | 2016-06-17 19:30 | NUR ---
INITIAL ASSESSMENT: RECEIVE PT IN BED, AWAKE, ALERT AND ORIENTED X4, RESTING, C/O PAIN 07/01, STATED WILL WAIT FOR SCHEDULE PAIN MEDICATION AT 1999. BREATHING EVEN AND NON LABORED WITH 02 2LI/NC, VITAL STABLE. CHEST CLEAR, ABDOMEN SOFT AND NON DISTENDED, ACTIVE BOWEL SOUND THROUGHOUT ABDOMEN, PT HAS IV ON LEFT UPPER ARM 24 G, FLUSHED WELL, SALINE LOCK, ASSESSMENT COMPLETE, EDUCATED THE PATIENT STUDENT MINISTRIES DIRECTOR LIGHT SYSTEM AND TO CALL FOR ANY ASSISTANCE, PATIENT VERBALIZED UNDERSTANDING, BED IN LOWEST POSITION, THREE SIDE RAILS UP, BED ALARM ON, BED CLOSE TO NURSE'S STATION, FALL AND ASPIRATION PRECAUTIONS IN PLACE, CALL LIGHT IN THE PATIENT'S HAND. WILL CONTINUE TO MONITOR.
[2016-06-17 20:00] VITALS: BP 110/60; PULSE 74; RESP 20; TEMP 97.5; O2SAT 100
--- NOTE | 2016-06-17 20:30 | NUR ---
ADMINISTERED MEDICATION: PATIENT RESTING IN BED, ADMINISTERED ALL ORDER MEDICATION, PT PAIN /10, ADMINISTERED ULTRAM/TYLENOL #3, AND XANAX FOR ANXIETY. ASSISTED WITH BED CASTAÑEDA, HYGIENE CARE RENDERED. ADMINISTERED ALL ORDER MEDICATION. NO OTHER NEEDS AT THIS TIME, BED IN LOWEST POSITION, THREE SIDE RAILS UP, BED ALARM ON, BED CLOSE TO NURSE'S STATION, FALL AND ASPIRATION PRECAUTIONS IN PLACE, CALL LIGHT IN THE PATIENT'S HAND. WILL CONTINUE TO MONITOR.
--- NOTE | 2016-06-17 22:00 | NUR ---
PAIN/ADMINISTERED DILAUDID: PATIENT RESTING IN BED, STATING SEVERE PAIN 7/10 AT THIS TIME, ADMINISTERED DILAUDID 1 MG IVP, EDUCATED ON MEDICATION AND POTENTIAL SIDE EFFECTS, PATIENT VERBALIZED UNDERSTANDING AND TOLERATED WELL, IV SITE IS PATENT WITH NO SIGNS OF INFILTRATION, BED IN LOWEST POSITION, THREE SIDE RAILS UP, BED ALARM ON, FALL AND ASPIRATION PRECAUTIONS IN PLACE, PT REQUESTED FOR BED CASTAÑEDA, ASSISTED, CLEAN AND HYGIENE CARE RENDERED. TURN AND REPOSITION, CALL LIGHT IN THE PATIENT'S HAND, BED CLOSE TO NURSE'S STATION, WILL CONTINUE TO MONITOR.
--- NOTE | 2016-06-17 23:42 | NUR ---
ROUND: PATIENT RESTING IN BED, BREATHING EVEN AND NON LABORED IN 02 1LI/NC. IV SITE IS PATENT WITH NO SIGNS OF INFILTRATION, BED IN LOWEST POSITION, THREE SIDE RAILS UP, BED ALARM ON, FALL AND ASPIRATION PRECAUTIONS IN PLACE, PT REQUESTED FOR BED CASTAÑEDA, ASSISTED, CLEAN AND HYGIENE CARE RENDERED. TURN AND REPOSITION, CALL LIGHT IN THE PATIENT'S HAND, BED CLOSE TO NURSE'S STATION, WILL CONTINUE TO MONITOR.
[2016-06-17 23:50] VITALS: BP 117/64; PULSE 80; RESP 20; TEMP 98.4; O2SAT 96
[2016-06-18] MEDS: HYDROmorphone 1 MG INJ. 1 MG/ML AMPUL IVP PRN ×6 (01:08→23:41)
--- NOTE | 2016-06-18 01:09 | NUR ---
PAIN/ADMINISTERED DILAUDID: PATIENT RESTING IN BED, STATING SEVERE PAIN RIGHT HIP AND LOWER BACK 10/01 AT THIS TIME, ADMINISTERED DILAUDID 1 MG IVP, EDUCATED ON MEDICATION AND POTENTIAL SIDE EFFECTS, PATIENT VERBALIZED UNDERSTANDING AND TOLERATED WELL, IV SITE IS PATENT WITH NO SIGNS OF INFILTRATION, BED IN LOWEST POSITION, THREE SIDE RAILS UP, BED ALARM ON, FALL AND ASPIRATION PRECAUTIONS IN PLACE, PT REQUESTED FOR BED CASTAÑEDA, ASSISTED, CLEAN AND HYGIENE CARE RENDERED. TURN AND REPOSITION, CALL LIGHT IN THE PATIENT'S HAND, BED CLOSE TO NURSE'S STATION, WILL CONTINUE TO MONITOR.
[2016-06-18] MEDS: IPRATROPIUM BROM 0.5 MG/2.5 ML VIAL.NEB (ATROVENT) INH SCH ×4 (02:15→20:25)
[2016-06-18] MEDS: ALBUTEROL SULFATE 0.083% 2.5 MG/3 ML VIAL.NEB INH SCH ×4 (02:15→20:25)
[2016-06-18 04:03] VITALS: BP 148/79; PULSE 78; RESP 16; TEMP 97.2; O2SAT 96
--- NOTE | 2016-06-18 06:18 | NUR ---
PAIN/ADMINISTERED DILAUDID: PATIENT RESTING IN BED, STATING SEVERE PAIN RIGHT HIP AND LOWER BACK 10/ AT THIS TIME, ADMINISTERED DILAUDID 1 MG IVP, EDUCATED ON MEDICATION AND POTENTIAL SIDE EFFECTS, PATIENT VERBALIZED UNDERSTANDING AND TOLERATED WELL, IV SITE IS PATENT WITH NO SIGNS OF INFILTRATION, BED IN LOWEST POSITION, THREE SIDE RAILS UP, BED ALARM ON, FALL AND ASPIRATION PRECAUTIONS IN PLACE, PT REQUESTED FOR BED CASTAÑEDA, ASSISTED, CLEAN AND HYGIENE CARE RENDERED. TURN AND REPOSITION, CALL LIGHT IN THE PATIENT'S HAND, BED CLOSE TO NURSE'S STATION, WILL CONTINUE TO MONITOR.
--- NOTE | 2016-06-18 07:32 | NUR ---
CARE ENDORSE TO TIAGO RN, PT STABLE, NO DISTRESS. ALL NEEDS ATTENDED THROUGHOUT SHIFT.
--- NOTE | 2016-06-18 07:35 | NUR ---
rn notes: patient is aaox 4. afebrile. vss stable. left eye blind as verbalized. lungs bilaterally diminished at the bases. abdomen soft and non distended. bed in low position. call lights within reach. safety measures maintained. informed patient to call for assistance. no skin breakdown noted at this time.
--- NOTE | 2016-06-18 08:00 | NUR ---
had a breathing treatment as scheduled. assists on adls.
[2016-06-18 08:27] VITALS: BP 136/76; PULSE 91; RESP 18; TEMP 98; O2SAT 100
--- NOTE | 2016-06-18 08:28 | NUR ---
patient is stable. has l liter nc. of oxygen no sob nor distress noted. eating breakfast tolerating well. afebrile vss stable.
--- NOTE | 2016-06-18 08:45 | NUR ---
CALLED NEURO SURGEON CONSULT TO DR WHITMORE RE: BACK PAIN. SPOKE TO COLE
[2016-06-18] MEDS: ACETAMINOPHEN/CODEINE 300 MG-30 MG TABLET PO SCH ×4 (09:00→20:16)
[2016-06-18] MEDS: GABAPENTIN 400 MG CAPSULE PO SCH ×3 (09:07→20:15)
--- NOTE | 2016-06-18 09:07 | NUR ---
CALLED THE PAIN MGMT MD DR STEINER, RE: REQUEST OF NEUROSURGEON DR SMITH, CARDIAC NURSE SPECIALIST FOR DR WHITMORE. SPOKE TO CECILIA
--- NOTE | 2016-06-18 09:22 | NUR ---
DILAUDID 1mg iv given. made comfortable at this time.
--- NOTE | 2016-06-18 10:15 | NUR ---
xanax po given. assists on adls.
[2016-06-18] MEDS: ALPRAZolam 0.25 MG TABLET PO PRN ×2 (10:24→18:33)
--- NOTE | 2016-06-18 10:31 | NUR ---
voided on the bedpan. lots. refused to have tylenol #3 for now.
--- NOTE | 2016-06-18 12:00 | NUR ---
eating lunch tolerating well. no distress noted.
[2016-06-18 13:01] VITALS: BP 139/80; PULSE 77; RESP 16; TEMP 97.5; O2SAT 96
--- NOTE | 2016-06-18 14:00 | NUR ---
watching tv. stable.
--- NOTE | 2016-06-18 16:00 | NUR ---
assisted on adls. able to void in the bedpan.
[2016-06-18 16:50] VITALS: BP 140/79; PULSE 78; RESP 16; TEMP 99.2; O2SAT 99
--- NOTE | 2016-06-18 17:25 | NUR ---
dilaudid 1 mg iv given. made comfortable. assists on adls.
--- NOTE | 2016-06-18 18:20 | NUR ---
xanax po given.
--- NOTE | 2016-06-18 19:32 | NUR ---
sbar report given to Polo
[2016-06-18 20:00] VITALS: BP 144/84; PULSE 77; RESP 18; TEMP 98.8; O2SAT 98
--- NOTE | 2016-06-18 20:00 | NUR ---
Initial Notes Received patient laying in bed, awake, alert, oriented. Patient denies any acute distress at this time. Medicated patient for pain per MD orders. Vital signs stable. Breathing is even and unlabored on 1L NC. IV site patent/clean/dry. Needs addressed. Educated patient on use of call light for assistance and fall precautions, patient verbalized understanding. Call light in hand, will continue to monitor.
--- NOTE | 2016-06-18 22:00 | NUR ---
Rounds Patient resting in bed with eyes closed. No distress noted, breathing is even and unlabored. Call light in hand, will continue to monitor.
[2016-06-19] VITALS (8 sets, daily range): BP systolic 130–142; BP diastolic 70–91; PULSE 61–87; RESP 15–18; TEMP 97–97.4; O2SAT 94–100; Ht 160 cm; Wt 88.9 kg
--- NOTE | 2016-06-19 | NUR ---
Rounds Patient resting in bed, awake. Denies any acute distress or pain, stating that pain medication administered worked very well. Breathing is even and unlabored. Needs addressed. Call light in hand, will continue to monitor.
[2016-06-19] MEDS: ALPRAZolam 0.25 MG TABLET PO PRN ×3 (01:45→16:43)
--- NOTE | 2016-06-19 02:00 | NUR ---
Rounds Patient resting in bed, awake. Denies any acute distress or pain. Medicated patient for anxiety per MD orders. Needs addressed. Call light in hand, fall precautions in place. Will continue to monitor for changes and safety.
--- NOTE | 2016-06-19 04:27 | NUR ---
Rounds Patient resting in bed with eyes closed. No acute distress noted, breathing is even and unlabored. Call light in hand, will continue to monitor.
[2016-06-19] MEDS: HYDROmorphone 1 MG INJ. 1 MG/ML AMPUL IVP PRN ×2 (05:22→09:04)
--- NOTE | 2016-06-19 06:32 | NUR ---
Closing Notes Patient resting in bed with eyes closed, easily aroused. Patient denies any acute distress or pain at this time. Breathing is even and unlabored. IV site patent/clean/dry, no S/S infection/infiltration. Needs addressed throughout shift. Call light in hand, fall precautions in place. Will continue to monitor for changes and safety, and endorse all patient care/needs to oncoming nurse.
--- NOTE | 2016-06-19 07:30 | NUR ---
rn notes: patient is aaox 4. afebrile. vss stable. lungs bilaterally diminished at the bases. abdomen soft and non distended. has bruise left knee. has iv access on the left upper arm. saline lock patent/dry. #2o. bed in low position. call lights within reach. safety measures maintained. informed patient to call for assistance. no skin breakdown noted.
--- NOTE | 2016-06-19 08:35 | NUR ---
PHYSICAL THERAPY CO-SIGN The Physical Therapy Progress Notes documented by Retinal Angiographer have been reviewed. Reviewed/Co-Signed by: Zohra Fisher PT Documentation Done by: ENA GRECO CRATE MAKER Addendum: 06/19/16 at 0835 by Zohra Fisher PT Amended: Links added.
[2016-06-19] MEDS: GABAPENTIN 400 MG CAPSULE PO SCH ×2 (09:01→14:34)
--- NOTE | 2016-06-19 09:13 | NUR ---
due medication given as ordered. assists on adls.
[2016-06-19] MEDS: IPRATROPIUM BROM 0.5 MG/2.5 ML VIAL.NEB (ATROVENT) INH SCH ×2 (09:16→15:36)
[2016-06-19] MEDS: ALBUTEROL SULFATE 0.083% 2.5 MG/3 ML VIAL.NEB INH SCH ×2 (09:16→15:36)
--- NOTE | 2016-06-19 10:33 | NUR ---
DISCHARGE PLANNING DC order to arrange home health. Faxed order to AURORA Schmidt at [facility] [phone] requested to forward contracted home health list. DCP will follow up. Addendum: 06/19/16 at 1353 by Jennifer Alonzo DP Called AURORA Hernández at [phone] and [phone] left voice message at both number requesting return call back. Addendum: 06/19/16 at 1402 by Jennifer Alonzo DP Faxed home health referral to [facility] [phone]. Will follow up. Addendum: 06/19/16 at 1512 by Jennifer Alonzo DP Spoke with Ayaka at [facility] [phone] who will accept patient upon insurance auth. Ayaka will notify DCP with confirmation once auth has been received. Called AURORA Her at [facility] [phone] and [phone] left third voice message requesting return call back. DCP will continue to follow up. Addendum: 06/19/16 at 1652 by Jennifer Alonzo DP Per AURORA Lyn at [facility] referral to [facility] [phone]. Will follow up. Addendum: 06/19/16 at 1715 by Jennifer AKHTAR Called CLAUDIA - [facility] message will be forwarded to body recall instructor nurse requesting return call back.
[2016-06-19] MEDS: ACETAMINOPHEN/CODEINE 300 MG-30 MG TABLET PO SCH ×3 (10:34→16:42)
--- NOTE | 2016-06-19 10:34 | NUR ---
complained of pain still grade of 6. tylenol #3 given po with water. assists on adls. made comfortable.
--- NOTE | 2016-06-19 11:06 | NUR ---
DC PLANNING: Spoke with the pt. at bedside regarding dc to home with home health. The pt. agreed with the plan, stated that she felt confident with her walking ability. Her mental status is clearer than when she first came in. Her sister lives 15 mins away and come to visit her everyday or as needed. She does not want to go to snf at this time.
--- NOTE | 2016-06-19 12:32 | NUR ---
patient has done lunch tolerating well. no pain noted nor distress noted.
--- NOTE | 2016-06-19 13:50 | NUR ---
patient stable. christina as per Maude director of casework department still awaiting from home health approval.
--- NOTE | 2016-06-19 14:50 | NUR ---
neurontin 2 tabs po given at this time. by student nurse with the instructor . patient no pain nor distress noted.
--- NOTE | 2016-06-19 14:57 | NUR ---
PHYSICAL THERAPY CO-SIGN The Physical Therapy Progress Notes documented by Convict Guard have been reviewed. Reviewed/Co-Signed by: Temitope Gregory PT Documentation Done by: Edd Toscano PTA I concur with the documentation of this ULTIMATE HOOPS REFEREE. Patient is for possible DC to home later today. Addendum: 06/19/16 at 1458 by Temitope Gregory PT Amended: Links added.
--- NOTE | 2016-06-19 16:12 | NUR ---
informed patient regarding the status of discharge to home with home health. awaiting for the showcase trimmer for final say.
--- NOTE | 2016-06-19 16:45 | NUR ---
Patient complained of pain, grade of 6, Tylenol #3 given and Xanax 0.25 mg PO given with water. HOB elevated. Made comfortable.
--- NOTE | 2016-06-19 17:57 | NUR ---
awaiting for Jennifer Growth Hacker to call us back regarding home health. informed Ashlie charge nurse
--- NOTE | 2016-06-19 18:36 | NUR ---
paged paged for Virgilio, dialed . picked up phone call.
--- NOTE | 2016-06-19 18:46 | NUR ---
paged paged for Virgilio, dialed . picked up phone call.
--- NOTE | 2016-06-19 18:47 | NUR ---
patient refused to be at SNF. she rather want to go home. and sister will take care of her.
--- NOTE | 2016-06-19 18:48 | NUR ---
Dr Poole called informed of the patient wants to go home tonite with the sister.
--- NOTE | 2016-06-19 19:25 | NUR ---
sbar report given to incoming nurse Rader RN
--- NOTE | 2016-06-19 19:56 | NUR ---
D/C PATIENT D/C PT TO HOME ORDERED. NO SOB OR DISTRESS NOTED DURING D/C. V/S ARE WNL. TRANSITION PAPERS WAS EXPLAINED AND PT VERBALIZED UNDERSTANDING. REMOVED IV AND ALL BELONGINGS WAS WITH PT. PT WAS ACCOMPANIED BY SISTER.
--- NOTE | 2016-06-22 09:11 | NUR ---
DISCHARGE PLANNING Called [facility] [phone] spoke with Cornelius in intake dept who confirmed referral was received and currently pending insurance auth. Called AURORA Her at [facility] who will work on insurance auth and will forward to [facility]. Addendum: 06/22/16 at 1123 by Jennifer Alonzo DP Spoke with Annamaria in intake dept at [facility] who still pending insurance auth. Annamaria was provided with AURORA Guido at [facility] contact number for follow up. Annamaria will return DCP call with confirmation once insurance auth has been received for home health nurse to be scheduled to see patient. DCP will continue to follow up. Addendum: 06/22/16 at 1403 by Jennifer Alonzo DP Spoke with Nasreen in intake dept at [facility] insurance auth was received and manager provider relations will call patient to make visit arrangements.
--- NOTE | 2016-06-26 12:08 | NUR ---
Discharge Follow Up Phone Calls: Rate Examiner called and left voice mails for pt ([phone]) on 06/24/16, 06/25/16, and 06/26/16. Rate Examiner contact information was provided and pt was encouraged to call back with any needs or concerns. Rate Examiner will continue to remain available for pt to call back, but no further follow up phone calls will be made at this time.
== END 2016-06-19 19:57 | disposition home health service (06) | DRG 189 ==
LOC: SED 10:29 → SIC 12:43 → STU 13:10 → SMU 06-16 22:32
PROVIDERS: ADMIT Internal Medicine Hospice and Palliative Medicine; ATTEND Internal Medicine Hospice and Palliative Medicine
DX: J96.01 Acute respiratory failure with hypoxia (principal); G92 Toxic encephalopathy; M16.0 Bilateral primary osteoarthritis of hip; G89.4 Chronic pain syndrome; E78.5 Hyperlipidemia, unspecified; G47.33 Obstructive sleep apnea (adult) (pediatric); H54.42 Blindness, left eye, normal vision right eye; R29.6 Repeated falls; F32.9 Major depressive disorder, single episode, unspecified; M47.9 Spondylosis, unspecified; F41.9 Anxiety disorder, unspecified; K21.9 Gastro-esophageal reflux disease without esophagitis; Z86.711 Personal history of pulmonary embolism; Z87.891 Personal history of nicotine dependence; Z86.718 Personal history of other venous thrombosis and embolism; Z88.6 Allergy status to analgesic agent; Z88.8 Allergy status to other drugs, medicaments and biological substances; Z79.899 Other long term (current) drug therapy
CPT/HCPCS: 36415; 36600; 71010; 72170-TC; 73502; 80053; 81000-TC; 81003; 82803-TC; 83880; 85025; 85610-TC; 85730-TC; 87081; 93005; 94640; 94760; 96374; 96375; 97110-GP; 97116-GP; 97530-GP; 99291; J1170; J2310; J2405

== ENCOUNTER 2016-09-09 16:30 | Inpatient (IN) | payer OTHER ==
[~2016-09-09] VITALS: Ht 160 cm; Wt 81.6 kg
[2016-09-09 16:30] VITALS: BP_SYST 161
[~2016-09-09 16:30] MED LIST changes: -ALPHAGANP LEFTEYE; -ASPI-1063 PO; -CEL20 PO; -LEVO500T20 PO; -SIMV20TA2 PO; -TEMA15CA51 PO; -TOPI25TA8 PO
[2016-09-09 18:31] LABS: HEMATOCRIT 33.7 % (36-48); HEMOGLOBIN 11.4 g/dL (12.0-16.0); MEAN CORPUSCULAR HEMOGLOBIN 30 pg (27-31); MEAN CORPUSCULAR HGB CONC 34 % (32-36); MEAN CORPUSCULAR VOLUME 89 fL (79.0-98.0); PLATELET COUNT (AUTO) 200 K/uL (130-430); RED BLOOD CELL COUNT(AUTO) 3.81 MIL/uL (4.2-6.2); RED CELL DISTRIBUTION WIDTH 13.7 % (9.0-15.0); WHITE BLOOD COUNT (AUTO) 6.6 K/uL (4.8-10.8)
[2016-09-09 18:50] LABS: INR 0.9 (0.8-1.2); PROTHROMBIN TIME 9.9 SECS (9.5-12.5)
[2016-09-09 18:53] LABS: ATYPICAL LYMPHOCYTES % 0 % (0-0); BAND % (MANUAL) 2 % (0-6); BASOPHILS % (MANUAL) 0 % (0-2); EOSINOPHILS % (MANUAL) 2 % (0-7); LYMPHOCYTES % (MANUAL) 45 % (20-46); MONOCYTES % (MANUAL) 6 % (0-11)
[2016-09-09 18:55] LABS: ANION GAP 7 (5-15); CALCIUM 8.4 mg/dL (8.4-11.0); CHLORIDE 109 mmol/L (98-107); CREATININE 0.88 mg/dL (0.55-1.30); GLUCOSE 138 mg/dL (70-99); POTASSIUM 3.4 mmol/L (3.5-5.1); SODIUM SERUM 144 mmol/L (136-145); UREA NITROGEN, BLOOD 15 mg/dL (8-21)
[2016-09-09 18:56] LABS: GFR AFRICAN AMERICAN 82 mL/min (>90)
[2016-09-09 19:04] LABS: ALANINE AMINOTRANSFERASE 11 U/L (12-78); ALBUMIN 3.1 g/dL (3.4-4.8); ASPARTATE AMINOTRANSFERASE 13 U/L (10-37); FREE T4 (FREE THYROXINE) 0.6 ng/dL (0.6-1.6); TOTAL BILIRUBIN 0.1 mg/dL (0.0-1.0); TOTAL PROTEIN, SERUM 6.5 g/dL (6.4-8.3)
[2016-09-09 19:10] LABS: ALCOHOL, BLOOD < 3 mg/dL (<10)
[2016-09-09] MEDS ORDERED: ONDANSETRON HCL 4 MG/2 ML VIAL IVP ONE (19:30)
[2016-09-09] MEDS ORDERED: HYDROmorphone 1 MG INJ. 1 MG/ML AMPUL IVP ONE (19:30)
[2016-09-09] MEDS ORDERED: ASPIRIN 300 MG/SUPP.RECT SUPP RC ONE (20:00)
[2016-09-09 21:11] LABS: BILIRUBIN,URINE NEGATIVE (NEGATIVE); BLOOD, URINE NEGATIVE (NEGATIVE); CLARITY/URINE CLEAR (CLEAR); COLOR,URINE YELLOW (YELLOW); GLUCOSE,URINE NEGATIVE (NEGATIVE); KETONES,URINE NEGATIVE (NEGATIVE); LEUKOCYTE ESTERASE ,URINE NEGATIVE (NEGATIVE); NITRITE, URINE NEGATIVE (NEGATIVE); PH,URINE 6.5 (5.0-8.0); PROTEIN URINE NEGATIVE (NEGATIVE); UROBILINOGEN,URINE 0.2 (0.2-1.0)
[2016-09-09 21:30] VITALS: BP_SYST 138
[2016-09-09 21:30] LABS: BARBITURATE, URINE NEGATIVE (NEG <=200); BENZODIAZEPINE, URINE POSITIVE (NEG <=150); CANNABINOID, URINE NEGATIVE (NEG <=50); COCAINE, URINE NEGATIVE (NEG <=150); METHAMPHETAMINES SCREEN,URINE NEGATIVE (NEG <=500); OPIATE, URINE NEGATIVE (NEG <=100); PHENCYCLIDINE SCREEN,URINE NEGATIVE (NEG <=25); UR TRICYCLIC ANTIDEPRESSANTS NEGATIVE (NEG <=300); URINE AMPHETAMINE NEGATIVE (NEG <=500); URINE METHADONE NEGATIVE (NEG <=200); URINE OXYCODONE SCREEN NEGATIVE (NEG <=100); URINE PROPOXYPHENE SCREEN NEGATIVE (NEG <=300)
[2016-09-09 21:39] VITALS: BP_SYST 138
[2016-09-09] MEDS: DORZOLAMIDE 2% OPHTHALMIC SOLN 5ML OP SCH (22:45)
[2016-09-09] MEDS: traMADol HCL HCL 50 MG TABLET (ULTRAM) PO SCH (22:45)
[2016-09-09] MEDS: Effexor 37.5 MG TAB PO SCH (23:10)
[2016-09-09] MEDS ORDERED: traMADol HCL HCL 50 MG TABLET (ULTRAM) ONE (23:13)
[2016-09-09] MEDS ORDERED: Effexor 37.5 MG TAB ONE (23:14)
[2016-09-09] MEDS ORDERED: DIPHENHYDRAMINE INJ 50 MG/ML VIAL IVP PRN (23:15)
[2016-09-09] MEDS ORDERED: TEMAZEPAM 15 MG CAPSULE PO PRN (23:15)
[2016-09-09] MEDS ORDERED: POTASSIUM CHLORIDE 20 MEQ TAB.PRT.SR PO ONE (23:30)
[2016-09-09] MEDS: HYDROmorphone 1 MG INJ. 1 MG/ML AMPUL IVP PRN (23:35)
[2016-09-09] MEDS: ONDANSETRON HCL 4 MG/2 ML VIAL IVP PRN (23:36)
[2016-09-10 00:06] VITALS: BP_SYST 177
[2016-09-10 04:00] VITALS: BP_SYST 119
[2016-09-10] MEDS: HYDROmorphone 1 MG INJ. 1 MG/ML AMPUL IVP PRN ×3 (04:11→13:13)
[2016-09-10 06:30] LABS: BASOPHILS # (AUTO) 0.1 K/uL (0.0-0.2); BASOPHILS % (AUTO) 0.9 % (0.0-2.0); EOSINOPHILS # (AUTO) 0.1 K/uL (0.0-0.4); EOSINOPHILS % (AUTO) 2.1 % (0.0-4.0); HEMATOCRIT 34.6 % (36-48); HEMOGLOBIN 11.3 g/dL (12.0-16.0); LYMPHOCYTES # (AUTO) 2.7 K/uL (1.0-5.5); LYMPHOCYTES % (AUTO) 39.9 % (20.5-51.5); MEAN CORPUSCULAR HEMOGLOBIN 29 pg (27-31); MEAN CORPUSCULAR HGB CONC 33 % (32-36); MEAN CORPUSCULAR VOLUME 89 fL (79.0-98.0); MONOCYTES # (AUTO) 0.5 K/uL (0.0-1.0); MONOCYTES % (AUTO) 7.2 % (1.7-9.3); NEUTROPHILS # (AUTO) 3.3 K/uL (1.8-7.7); NEUTROPHILS % (AUTO) 49.9 % (40.0-70.0); PLATELET COUNT (AUTO) 269 K/uL (130-430); RED BLOOD CELL COUNT(AUTO) 3.89 MIL/uL (4.2-6.2); RED CELL DISTRIBUTION WIDTH 13.9 % (9.0-15.0); WHITE BLOOD COUNT (AUTO) 6.7 K/uL (4.8-10.8)
[2016-09-10 08:00] VITALS: BP_SYST 132
[2016-09-10] MEDS: Effexor 37.5 MG TAB PO SCH (08:54)
[2016-09-10] MEDS: traMADol HCL HCL 50 MG TABLET (ULTRAM) PO SCH ×3 (09:00→22:10)
[2016-09-10] MEDS: DORZOLAMIDE 2% OPHTHALMIC SOLN 5ML OP SCH ×2 (09:00→21:00)
[2016-09-10 10:08] LABS: CHLORIDE 108 mmol/L (98-107); POTASSIUM 4.4 mmol/L (3.5-5.1); SODIUM SERUM 142 mmol/L (136-145)
[2016-09-10 10:09] LABS: ANION GAP 1 (5-15); GLUCOSE 107 mg/dL (70-99); UREA NITROGEN, BLOOD 16 mg/dL (8-21)
[2016-09-10 10:10] LABS: CREATININE 0.95 mg/dL (0.55-1.30); GFR AFRICAN AMERICAN 75 mL/min (>90)
[2016-09-10 10:19] LABS: BILIRUBIN,URINE NEGATIVE (NEGATIVE); BLOOD, URINE 3+ (NEGATIVE); CLARITY/URINE CLOUDY (CLEAR); COLOR,URINE YELLOW (YELLOW); GLUCOSE,URINE NEGATIVE (NEGATIVE); KETONES,URINE NEGATIVE (NEGATIVE); LEUKOCYTE ESTERASE ,URINE 1+ (NEGATIVE); NITRITE, URINE NEGATIVE (NEGATIVE); PH,URINE 5.5 (5.0-8.0); PROTEIN URINE TRACE (NEGATIVE); UROBILINOGEN,URINE 0.2 (0.2-1.0)
[2016-09-10 10:21] LABS: ALANINE AMINOTRANSFERASE 14 U/L (12-78); ALBUMIN 3.1 g/dL (3.4-4.8); ASPARTATE AMINOTRANSFERASE 15 U/L (10-37); TOTAL BILIRUBIN 0.2 mg/dL (0.0-1.0); TOTAL PROTEIN, SERUM 6.5 g/dL (6.4-8.3)
[2016-09-10 10:22] LABS: CHOLESTEROL 173 mg/dL (<200); FREE T4 (FREE THYROXINE) 0.6 ng/dL (0.6-1.6); HDL CHOLESTEROL 42 mg/dL (>55); LDL CHOLESTEROL 88 mg/dL (<100); TRIGLYCERIDES 347 mg/dL (30-150)
[2016-09-10 10:23] LABS: THYROID STIMULATING HORMONE 3.98 uIu/mL (0.34-4.82)
[2016-09-10 10:27] LABS: BACTERIA,URINE FEW /HPF (None Seen); WBC,URINE >100 /HPF (0-3)
[2016-09-10 12:02] VITALS: BP_SYST 117
[2016-09-10 16:02] VITALS: BP_SYST 129
[2016-09-10] MEDS: ONDANSETRON HCL 4 MG/2 ML VIAL IVP PRN (18:51)
[2016-09-10 20:00] VITALS: BP_SYST 140
[2016-09-10] MEDS ORDERED: traMADol HCL HCL 50 MG TABLET (ULTRAM) PO PRN (21:15)
[2016-09-10] MEDS ORDERED: METOCLOPRAMIDE HCL 10 MG/2 ML VIAL IM PRN (21:15)
[2016-09-10 21:57] LABS: BLOOD GAS PH 7.362 (7.350-7.450)
[2016-09-10 21:58] LABS: ABG TOTAL HEMOGLOBIN 12.8 G/dL (12.0-18.0); BLOOD GAS BASE EXCESS 2.1 mmol/L (-3.0-3.0)
[2016-09-10 21:59] LABS: BLOOD GAS COHb% 1.1 % (0.5-1.5); BLOOD GAS HHB 19.8 % (0.0-6.0)
[2016-09-10] MEDS: ALPRAZolam 0.25 MG TABLET PO PRN (22:17)
[2016-09-10] MEDS ORDERED: IPRATROPIUM/ALBUTEROL SULFATE 3 ML AMPUL.NEB INH PRN (22:45)
[2016-09-11] VITALS (8 sets, daily range): BP systolic 129–144
[2016-09-11] MEDS: IPRATROPIUM/ALBUTEROL SULFATE 3 ML AMPUL.NEB INH SCH ×7 (00:21→23:36)
[2016-09-11] MEDS: methylPREDNISolone SOD SUCC/PF 62.5 MG/ML VIAL IVP SCH ×2 (00:24→05:20)
[2016-09-11] MEDS: ALPRAZolam 0.25 MG TABLET PO PRN ×5 (05:07→23:28)
[2016-09-11 07:53] LABS: BLOOD GAS BASE EXCESS -0.2 mmol/L (-3.0-3.0); BLOOD GAS PH 7.352 (7.350-7.450)
[2016-09-11 07:54] LABS: ABG TOTAL HEMOGLOBIN 12.9 G/dL (12.0-18.0); BLOOD GAS COHb% 1.1 % (0.5-1.5); BLOOD GAS HHB 4.1 % (0.0-6.0); BLOOD O2Hb% 94.6 % (94.0-97.0)
[2016-09-11] MEDS: ONDANSETRON HCL 4 MG/2 ML VIAL IVP PRN (08:20)
[2016-09-11] MEDS: Effexor 37.5 MG TAB PO SCH (08:21)
[2016-09-11] MEDS: traMADol HCL HCL 50 MG TABLET (ULTRAM) PO SCH ×2 (08:21→08:34)
[2016-09-11] MEDS: DORZOLAMIDE 2% OPHTHALMIC SOLN 5ML OP SCH ×2 (09:00→11:21)
[2016-09-11] MEDS ORDERED: HYDROmorphone 1 MG INJ. 1 MG/ML AMPUL IVP PRN (10:15)
[2016-09-11] MEDS: cefTRIAXone 1 GM in D5W 50 ML IV SCH (11:59)
[2016-09-11] MEDS: AZITHROMYCIN 250 MG TABLET PO SCH (12:23)
[2016-09-11] MEDS ORDERED: methylPREDNISolone SOD SUCC 40 MG/ML VIAL IVP SCH (14:00)
[2016-09-11] MEDS: traMADol HCL HCL 50 MG TABLET (ULTRAM) PO PRN ×2 (18:36→21:33)
[2016-09-12] MEDS: IPRATROPIUM/ALBUTEROL SULFATE 3 ML AMPUL.NEB INH SCH ×4 (03:00→15:18)
[2016-09-12 05:07] VITALS: BP_SYST 139
[2016-09-12] MEDS: ONDANSETRON HCL 4 MG/2 ML VIAL IVP PRN (07:41)
[2016-09-12 08:22] VITALS: BP_SYST 156
[2016-09-12] MEDS: Effexor 37.5 MG TAB PO SCH (09:12)
[2016-09-12] MEDS: traMADol HCL HCL 50 MG TABLET (ULTRAM) PO PRN ×2 (09:12→15:11)
[2016-09-12] MEDS: ALPRAZolam 0.25 MG TABLET PO PRN ×2 (09:13→15:11)
[2016-09-12] MEDS: cefTRIAXone 1 GM in D5W 50 ML IV SCH (11:15)
[2016-09-12] MEDS: AZITHROMYCIN 250 MG TABLET PO SCH (11:16)
[2016-09-12 12:08] VITALS: BP_SYST 136
[2016-09-12 16:18] VITALS: BP_SYST 143
[2016-09-12 18:19] VITALS: BP_SYST 156
[2016-09-12] MEDS ORDERED: LACT1CAP71 PO (18:25)
[2016-09-12] MEDS ORDERED: LEVO500T20 PO (18:25)
[2016-09-12] MEDS ORDERED: IPRA4AER INH (18:26)
== END 2016-09-12 18:57 | disposition home health service (06) | DRG 551 ==
LOC: SED 16:30 → STU 20:59 → SMU 09-12 13:07
PROVIDERS: ADMIT Internal Medicine; ATTEND Internal Medicine
PROC: 5A09357 Assistance with Respiratory Ventilation, Less than 24 Consecutive Hours, Continuous Positive Airway Pressure (ICD-10-PCS; principal; 2016-09-11)
DX: M47.896 Other spondylosis, lumbar region (principal); J96.01 Acute respiratory failure with hypoxia; J96.02 Acute respiratory failure with hypercapnia; J44.1 Chronic obstructive pulmonary disease with (acute) exacerbation; E87.6 Hypokalemia; G89.4 Chronic pain syndrome; E66.9 Obesity, unspecified; K21.9 Gastro-esophageal reflux disease without esophagitis; H54.42 Blindness, left eye, normal vision right eye; M51.36 Other intervertebral disc degeneration, lumbar region; Z60.2 Problems related to living alone; F32.9 Major depressive disorder, single episode, unspecified; F41.9 Anxiety disorder, unspecified; T40.695A Adverse effect of other narcotics, initial encounter; E78.5 Hyperlipidemia, unspecified; Y92.238 Other place in hospital as the place of occurrence of the external cause; G47.33 Obstructive sleep apnea (adult) (pediatric); Z86.711 Personal history of pulmonary embolism; Z86.718 Personal history of other venous thrombosis and embolism; Z87.891 Personal history of nicotine dependence; Z79.899 Other long term (current) drug therapy; Z88.8 Allergy status to other drugs, medicaments and biological substances; Z88.6 Allergy status to analgesic agent; Z68.31 Body mass index [BMI] 31.0-31.9, adult; G89.29 Other chronic pain; M54.5 Low back pain
CPT/HCPCS: 36415; 36600; 71010; 71250-TC; 72131; 80053; 80061; 80307; 81000-TC; 81003; 82140-TC; 82803-TC; 83036; 83605; 83735-TC; 83880; 84439; 84443-TC; 84484; 85007; 85025; 85027; 85610-TC; 87040-TC; 87086; 93005; 93306; 94640; 94660; 94760; 96374; 96375; 97110-GP; 97116-GP; 97530-GP; 99285; G0482; J0696; J1170; J2405; J2765; J2930; J7050; J7060; Q0144